=== PATIENT | male | born 1990 | race Caucasian/White ===

== ENCOUNTER 2023-03-04 11:21 | Day surgery (SDC) | payer OTHER ==
[2023-03-04] MEDS ORDERED: ceFAZolin 2 GM VIAL ONE (11:30)
[2023-03-04] MEDS ORDERED: LACTATED RINGERS 1,000 ML IV ONE ×2 (11:30→14:20)
[2023-03-04] MEDS ORDERED: NALOXONE 0.4 MG/ML VIAL IVP PRN (12:11)
[2023-03-04] MEDS ORDERED: MORPHINE 2 MG/ML CARPUJECT IVP PRN (12:11)
[2023-03-04] MEDS ORDERED: ONDANSETRON 4 MG/2 ML VIAL IVP PRN (12:11)
[2023-03-04] MEDS ORDERED: HYDROmorphone 0.5 MG/0.5 ML SYRINGE IVP PRN (12:11)
[2023-03-04] MEDS ORDERED: ATROPINE ABBOJECT 1 MG/10 ML SYRINGE IVP PRN (12:11)
[2023-03-04] MEDS ORDERED: fentaNYL 100 MCG/2 ML VIAL IVP PRN (12:11)
--- NOTE | 2023-03-04 12:11 | ANESTHESIA ---
Pre-Anesthesia VS, & Labs - Diagnosis umbilical hernia - Procedure umbilical hernia repair with mesh Vital Signs: Temp Pulse Resp BP Pulse Ox O2 Flow Rate 36 C L 52 L 13 118/64 99 03/04/23 11:30 03/04/23 11:30 03/04/23 11:30 03/04/23 11:30 03/04/23 11:30 Height: 5 ft 11 in Weight (kg): 87.3 kg Body Mass Index: 26.8 BMI Classification: Overweight - NPO >8 hours Home Medications and Allergies Home Medications: Ambulatory Orders No Known Home Medications 02/25/23 No Known Home Medications 02/25/23 Allergies/Adverse Reactions: Allergies Allergy/AdvReac Type Severity Reaction Status Date / Time No Known Drug Allergies Allergy Verified 02/25/23 13:03 Anes History & Medical History - Anesthetic History Family history of Anesthesia Complications: Denies Family history of Malignant Hyperthermia: Denies - Medical History Cardiovascular: reports: None Pulmonary: reports: None Gastrointestinal: reports: None Urinary: reports: None Neuro: reports: None Musculoskeletal: reports: None Endocrine/Autoimmune: reports: None Blood Disorders: reports: None Skin: reports: None Smoking Status: Never smoker Psychosocial: reports: No issues indicated History of Cancer?: No Exam General: Alert, Oriented x3, Cooperative, No acute distress Dental: WNL Mouth Openin Fingerbreadth Neck Mobility: Normal Mallampati classification: II Thyromental Distance: 4-6 cm Mental/Cognitive Status: Alert/Oriented X3, Normal for patient Plan Anesthesia Type: General Consent for Procedure(s) Verified and Reviewed: Yes Code Status: Attempt Resuscitation ASA classification: 1-Healthy patient Is this case an emergency?: No
[2023-03-04] MEDS ORDERED: ROCURONIUM 50 MG/5 ML VIAL ONE (12:19)
[2023-03-04] MEDS ORDERED: fentaNYL 100 MCG/2 ML VIAL ONE (12:19)
[2023-03-04] MEDS ORDERED: PROPOFOL 200 MG/20 ML VIAL IVP ONE (12:19)
[2023-03-04] MEDS ORDERED: MIDAZOLAM 2 MG/2 ML VIAL ONE (12:19)
[2023-03-04] MEDS ORDERED: LIDOCAINE-MPF 1% 30 ML VIAL ONE (12:21)
[2023-03-04] MEDS ORDERED: BUPIVACAINE 0.25% PF 30 ML VIAL ONE (12:21)
[2023-03-04] MEDS ORDERED: LACTATED RINGERS 1,000 ML IV SCH (13:00)
[2023-03-04] MEDS ORDERED: ONDANSETRON 4 MG/2 ML VIAL ONE (13:29)
[2023-03-04] MEDS ORDERED: DEXAMETHASONE 4 MG/ML VIAL ONE (13:29)
[2023-03-04] MEDS ORDERED: BUPIVACAINE 0.25% PF 30 ML VIAL SUBQ ONE (13:35)
[2023-03-04] MEDS ORDERED: LIDOCAINE 1% 50 ML MDV SUBQ ONE (13:38)
[2023-03-04] MEDS ORDERED: HYDROmorphone 1 MG/ML CARPUJECT ONE (13:40)
[2023-03-04] MEDS ORDERED: HYDROcod/ACETAM 5/325 MG TABLET PO PRN (14:35)
[2023-03-04 15:25] VITALS: BP 137/80
--- NOTE | 2023-03-04 15:55 | ANESTHESIA POST OP EVALUATION ---
Anesthesia Post Eval - Post Anesthesia Eval Vitals: Last Vital Signs Temp 36.6 C 03/04/23 15:15 Pulse 58 L 03/04/23 15:15 Resp 16 03/04/23 15:15 BP 137/80 H 03/04/23 15:15 Pulse Ox 99 03/04/23 15:15 O2 Flow Rate CV Function Including HR & BP: Stable Pain Control: Satisfactory Nausea & Vomiting: Negative Mental Status: Baseline Respiratory Status: Airway Patent Hydration Status: Satisfactory Anesthesia Complications: None
--- NOTE | 2023-03-04 16:10 | OPERATIVE REPORT ---
Operative Report - General Procedure Date: 03/04/23 Planned Procedure: open ventral hernia repair with mesh Pre-Op Diagnosis: ventra hernia Procedure Performed: open repair incarcerated umbilical hernia Post Op Diagnosis: incarcerated umbilical hernia - Procedure Note Primary Surgeon: samreen raymundo Anesthesia Technique: General LMA, Local Pathology: fat removed. not sent Estimated Blood Loss (mL): 2 Indications: painful hernia bulge above his umbilicus Findings: as above Complications: none - Other Other Information/Narrative: The patient was properly identified brought to the operating room and placed in supine position. Laryngeal mask anesthesia was induced. Sequential compression devices were placed. He was prepped and draped in a sterile fashion and given preoperative antibiotics. A vertical 1 and half centimeter incision was made just cephalad of the umbilicus and extended left lateral of the umbilicus. The umbilical skin was sharply excised away from incarcerated herniated adipose tissue this adipose tissue was removed down to the fascia. The peritoneum was released from the fascial edge. Subcutaneous tissue was mobilized back from the fascial defect by approximately 2 cm in all directions. The preperitoneal space was carefully developed with blunt dissection. Hemostasis was assured. There was no additional hernia cephalad of the umbilical hernia. He had an incarcerated umbilical hernia with adipose tissue going more cephalad creating the appearance of a supraumbilical hernia. Approximately 1 x 2 inch polypropylene mesh was placed preperitoneal and secured with 9 interrupted 0 Ethibond sutures. Fascia was closed over the mesh with an additional 3 interrupted 0 Ethibond sutures. The mesh lay in good position without tension. Umbilical skin was tacked back down to fascia with interrupted 2-0 Vicryl suture. Subcutaneous tissue was closed with interrupted 3-0 Vicryl suture. Buried interrupted subdermal 3-0 Vicryl sutures were placed. Skin was closed with a running 4-0 Monocryl subcuticular suture. Dressing was applied. He tolerated the procedure well was awakened and brought to recovery in good condition.
== END 2023-03-04 11:22 | disposition home or self-care (01) ==
LOC: SDS 11:21
PROVIDERS: ATTEND Surgery
DX: K42.0 Umbilical hernia with obstruction, without gangrene (principal)
CPT/HCPCS: 49592; C1781; J1170; J7120